=== PATIENT | male | born 1940 | race Caucasian/White ===

== ENCOUNTER → 2017-09-01 | Day surgery (SDC) | payer OTHER ==
[~2017-09-01] MED LIST: ACETAMINOPHEN 1000 MG/100 ML 100 ML IV ONE; BUPIVACAINE/EPINEPHRINE 0.25% 50 ML VIAL ONE; LACTATED RINGER'S 1000 ML INJ 1,000 ML ONE; LIDOCAINE 1%/EPINEPHrine 1:100,000 SOLN 30 ML VIAL ONE; MINERAL OIL 10 ML VIAL ONE; NEOMYCIN/POLYMYXIN/BACITRACIN OINT 15 GM TUBE ONE; ONDANSETRON HCL 4 MG/2 ML VIAL IV PUSH ONE; PROPOFOL 200 MG/20 ML AMP IV ONE; SODIUM CHLOR 0.9% 250 ML BAG IV ONE; VANCOMYCIN HCL 1000 MG VIAL ONE; ceFAZolin INJ 1,000 MG VIAL ONE
--- NOTE | 2017-09-02 11:22 | MP ---
cc: TAMI SHANNON M.D., PETER T. M.D. FABIAN, MICHAEL A. M.D. LATIF, ZAFAR M.D. DATE OF SURGERY 09/01/2017 PROCEDURE Excision squamous cell carcinoma, left posterior auricular region. PREOPERATIVE DIAGNOSIS Squamous cell carcinoma, posterior auricular region. POSTOPERATIVE DIAGNOSIS Squamous cell carcinoma, posterior auricular region. PROCEDURE IN DETAIL The patient was seen in the holding area and the left side marked by the undersigned and confirmed by the patient and his . This was biopsy-confirmed squamous cell carcinoma and this was to be excised. The patient was taken back to the operating room and placed on the operating table in the supine position. After an adequate level of laryngeal mask anesthesia was achieved, the left and right posterior auricular regions were prepped and draped. A timeout was taken, confirming the correct patient, site, and procedure to be performed. An elliptical incision was made around the patient's obvious recurrent tumor after injecting with local anesthetic. Dissection was carried down to the muscle and the tumor was entirely excised to the gross margin edges. When this was completed, the wound was undermined and was able to be primarily closed with interrupted 2-0 Vicryl suture. This was accomplished after hemostasis was achieved. The skin was closed with a combination of 2-0 and 3-0 nylon suture. When this was completed the wound was dressed with antibiotic and 4x4s. He was taken back to the recovery room in stable condition. Sponge, needle and instrument counts were reported to be correct. MD GIL Rivers/DAMARIS /1:12 PM /11:01 AM TORIN
== END | disposition home or self-care (01) ==
LOC: ESDC 10:09
PROVIDERS: ATTEND Surgery Trauma Surgery
DX: C44.42 Squamous cell carcinoma of skin of scalp and neck (principal)
CPT/HCPCS: 00300; 11626; 88305; J0131; J0690; J2405; J3010; J3370; J7050; J7120